=== PATIENT | female | born 2000 | race Caucasian/White ===

== ENCOUNTER → 2020-01-23 00:08 | Observation (INO) ==
[2020-01-22 23:04] LABS: Bacteria,Urine Few per hpf (None-Few); Bilirubin,Urine Negative (Negative); Blood,Urine Negative (Negative); Clarity,Urine Turbid (Clear); Color,Urine Light-Yellow (Yellow); Glucose,Urine (UA) Normal (Normal); Ketones,Urine Negative (Negative); Leukocyte Esterase,Urine Negative (Negative); Mucus,Urine Few per lpf (None-Few); Nitrite,Urine Negative (Negative); PH,Urine 7.5 pH Units (5.0-8.0); Protein,Urine Negative (Neg-Trace); RBC,Urine 0-3 per hpf (0-3); Specific Gravity,Urine 1.011 (1.010-1.025); Squamous Epithelial Cell,Urine Few per hpf (None-Few); Urobilinogen,Urine Normal (Normal); WBC,Urine 0-3 per hpf (0-3)
== END | disposition home or self-care (01) ==
LOC: 1NENULAB
PROVIDERS: ADMIT Obstetrics & Gynecology; ATTEND Obstetrics & Gynecology

== ENCOUNTER 2020-02-18 12:43 | Observation (INO) ==
[2020-02-18 14:25] LABS: Amorphous Sediment,Urine Few per hpf (None-Few); Bacteria,Urine Few per hpf (None-Few); Bilirubin,Urine Negative (Negative); Blood,Urine Negative (Negative); Calcium Oxalate Crystals,Urine Present; Clarity,Urine Clear (Clear); Color,Urine Yellow (Yellow); Glucose,Urine (UA) Normal (Normal); Ketones,Urine Negative (Negative); Leukocyte Esterase,Urine Negative (Negative); Mucus,Urine Few per lpf (None-Few); Nitrite,Urine Negative (Negative); Protein,Urine 30 mg/dL (Neg-Trace); Specific Gravity,Urine 1.024 (1.010-1.025); Squamous Epithelial Cell,Urine Few per hpf (None-Few); WBC,Urine 0-3 per hpf (0-3)
== END 2020-02-18 13:45 | disposition home or self-care (01) ==
LOC: 1NENULAB
PROVIDERS: ADMIT Obstetrics & Gynecology; ATTEND Obstetrics & Gynecology

== ENCOUNTER → 2020-04-07 23:14 | Observation (INO) ==
[~2020-04-07 23:14] MED LIST: Ringers Solution, Lactated 1,000 ML IVC ONE; Ringers Solution, Lactated 1,000 ML ONE
== END | disposition home or self-care (01) ==
LOC: 1NENULAB
PROVIDERS: ADMIT Student in an Organized Health Care Education/Training Program; ATTEND Student in an Organized Health Care Education/Training Program

== ENCOUNTER 2020-04-18 05:29 | Inpatient (IN) ==
[2020-04-18] MEDS ORDERED: Famotidine 20 MG/2 ML VIAL IVP ONE (05:30)
[2020-04-18] MEDS ORDERED: CeFAZolin 2,000 MG/50 ML BAG IVPB ONE (05:30)
[2020-04-18] MEDS ORDERED: Ringers Solution, Lactated 1,000 ML IVC ONE (05:30)
[2020-04-18] MEDS ORDERED: Metoclopramide 10 MG/2 ML VIAL IVP ONE (05:30)
[2020-04-18 06:07] LABS: Basophils % 0.3 %; Eosinophils # 0.1 K/mcL (0.0-0.6); Eosinophils % 0.7 %; Hematocrit 28.6 % (35.3-44.9); Hemoglobin 8.9 g/dL (11.5-15.4); Immature Granulocytes % 1.2 % (0-4); Lymphocytes # 2.1 K/mcL (0.6-4.6); Mean Corpuscular HGB Conc 31.1 g/dL (31.6-35.5); Mean Corpuscular Hemoglobin 23.9 pg (28.0-33.3); Mean Corpuscular Volume 76.9 fL (83.0-100.0); Mean Platelet Volume 10.1 fL (9.4-12.4); Monocytes # 0.5 K/mcL (0.0-1.3); Monocytes % 4.6 %; Platelet Count 199 K/mcL (140-400); Red Blood Count 3.72 M/mcL (3.82-4.97); Red Cell Distribution Width 14.2 % (11.5-14.5); Segmented Neutrophils % 72.2 %; White Blood Count 9.7 K/mcL (4.3-11.1)
[2020-04-18] MEDS ORDERED: *HR* Morphine Sulfate/PF 10 MG/10 ML AMPUL ONE (07:22)
[2020-04-18] MEDS ORDERED: *HR* FentaNYL (PF) 100 MCG/2 ML VIAL ONE (07:22)
[2020-04-18] MEDS ORDERED: *HR* Oxytocin 10 UNIT/ML VIAL IM ONE (07:23)
[2020-04-18] MEDS ORDERED: Acetaminophen IV 1,000 MG/100 ML INFUS..BTL IVPB ONE (08:47)
[2020-04-18] MEDS ORDERED: *HR* HYDROmorphone PF 0.5 MG/0.5 ML SYRINGE IVP PRN (08:47)
[2020-04-18] MEDS ORDERED: Ondansetron 4 MG/2 ML VIAL IVP PRN ×2 (08:47→11:29)
[2020-04-18 09:40] LABS: Amphetamine Screen,Urine Negative ng/mL (Cutoff=1000); Barbiturate Screen,Urine Negative ng/mL (Cutoff=200); Benzodiazepines Screen,Urine Negative ng/mL (Cutoff=200); Cannabinoid Screen,Urine Negative ng/mL (Cutoff = 50); Cocaine Screen,Urine Negative ng/mL (Cutoff= 300); Opiate Screen,Urine Negative ng/mL (Cutoff=300); Phencyclidine Screen,Urine Negative ng/mL (Cutoff=25)
[2020-04-18] MEDS ORDERED: Oxytocin 20 units/ LR 1000 mL 20 UNIT/1,000 ML BAG IVC ONE (10:24)
[2020-04-18] MEDS ORDERED: Rho Immune Globulin 1,500 UNIT SYRINGE IM ONE (11:29)
[2020-04-18] MEDS ORDERED: Metoclopramide 10 MG/2 ML VIAL IVP PRN (11:29)
[2020-04-18] MEDS ORDERED: Sennosides 8.6 MG TABLET PO PRN (11:29)
[2020-04-18] MEDS ORDERED: Simethicone 80 MG TAB.CHEW PO PRN (11:29)
[2020-04-18] MEDS ORDERED: Oxytocin 20 units/ LR 1000 mL 20 UNIT/1,000 ML BAG IVC SCH (11:29)
[2020-04-18] MEDS: ceFAZolin 1,000 MG in Water for inj. (sterile) 10 ML IVP SCH ×2 (16:37→23:33)
[2020-04-18] MEDS: Ibuprofen 600 MG TABLET PO PRN (23:33)
[2020-04-18] MEDS: Prenatal Vit/FA 1 EACH TABLET PO SCH (23:37)
[2020-04-19] MEDS: *HR* OxyCODONE/APAP 5/325 TABLET PO PRN (04:44)
[2020-04-19 06:25] LABS: Basophils % 0.2 %; Eosinophils % 0.3 %; Hematocrit 26.6 % (35.3-44.9); Hemoglobin 8.2 g/dL (11.5-15.4); Immature Granulocytes % 1.1 % (0-4); Lymphocytes # 1.7 K/mcL (0.6-4.6); Lymphocytes % 15.8 %; Mean Corpuscular HGB Conc 30.8 g/dL (31.6-35.5); Mean Corpuscular Hemoglobin 24.6 pg (28.0-33.3); Mean Corpuscular Volume 79.6 fL (83.0-100.0); Mean Platelet Volume 10.2 fL (9.4-12.4); Monocytes # 0.7 K/mcL (0.0-1.3); Monocytes % 6.5 %; Neutrophils # 8.2 K/mcL (1.6-8.9); Platelet Count 159 K/mcL (140-400); Red Blood Count 3.34 M/mcL (3.82-4.97); Red Cell Distribution Width 14.2 % (11.5-14.5); Segmented Neutrophils % 76.1 %; White Blood Count 10.7 K/mcL (4.3-11.1)
[2020-04-19] MEDS: ceFAZolin 1,000 MG in Water for inj. (sterile) 10 ML IVP SCH (09:43)
[2020-04-19] MEDS: Prenatal Vit/FA 1 EACH TABLET PO SCH (09:44)
[2020-04-19] MEDS: Ibuprofen 600 MG TABLET PO PRN ×2 (09:45→17:27)
[2020-04-20] MEDS: *HR* OxyCODONE/APAP 5/325 TABLET PO PRN (02:28)
[2020-04-20] MEDS: Ibuprofen 600 MG TABLET PO PRN ×2 (06:59)
[2020-04-20 07:46] VITALS: BP 127/75
[2020-04-20] MEDS: Prenatal Vit/FA 1 EACH TABLET PO SCH (08:22)
== END 2020-04-20 11:05 | disposition home or self-care (01) | DRG 540 ==
LOC: 1NENULAB 05:29 → 1NENUOBS 11:14
PROVIDERS: ADMIT Obstetrics & Gynecology; ATTEND Obstetrics & Gynecology